=== PATIENT | female | born 1960 | race American Indian/Alaskan Native ===

== ENCOUNTER 2022-05-11 13:31 | Emergency (ER) | payer SELFPAY ==
--- NOTE | 2022-05-11 14:58 | XRay Report ---
CHEST 1 VIEW 05/11/2022 1:50 PM INDICATION / CLINICAL INFORMATION: Chest Pain. COMPARISON: None available. FINDINGS: SUPPORT DEVICES: None. HEART / MEDIASTINUM: No significant abnormality. LUNGS / PLEURA: No significant pulmonary or pleural abnormality. No pneumothorax. ADDITIONAL FINDINGS: No significant additional findings. IMPRESSION: 1. No acute findings. Signer Name: Vasu Thompson MD Signed: 05/11/2022 2:53 PM Workstation Name: [id number]
[2022-05-11 15:51] LABS: Basophils % (Auto) 0.7 % (0.0-1.8); Eosinophils # (Auto) 0.2 K/mm3 (0.0-0.4); Eosinophils % (Auto) 3.1 % (0.0-4.3); Hemoglobin 12.3 gm/dl (10.1-14.3); Lymphocytes # (Auto) 2.4 K/mm3 (1.2-5.4); Lymphocytes % (Auto) 35.4 % (13.4-35.0); Mean Corpuscular HGB Conc 33 % (30-34); Mean Corpuscular Volume 97 fl (79-97); Monocytes # (Auto) 0.7 K/mm3 (0.0-0.8); Monocytes % (Auto) 10.1 % (0.0-7.3); Platelet Count 228 K/mm3 (140-440); Red Blood Count 3.79 M/mm3 (3.65-5.03); Red Cell Distribution Width 13.6 % (13.2-15.2)
--- NOTE | 2022-05-11 15:57 | Emergency Department Report ---
ED General Adult HPI - General Chief complaint: Extremity Injury, Lower Stated complaint: SOB AND CHEST PAIN Time Seen by Provider: 05/11/22 15:25 Source: patient Mode of arrival: Ambulatory Limitations: No Limitations - History of Present Illness Initial comments: The patient presents to the emergency department with a chief complaint of shortness of breath and chest pain. Patient has a history of pulmonary emboli and has been on Xarelto for that for the last year. Initially the patient is very vague about the shortness of breath and chest pain but upon me asking more detailed questions it is revealed that she has had this chest pain or shortness of breath since she had the PE 1 year ago. She denies any abdominal pain or headache. -: Gradual, year(s) (1) Location: chest Severity scale (0 -10): 3 Quality: aching Consistency: constant Improves with: none Worsens with: none Associated Symptoms: denies other symptoms Treatments Prior to Arrival: none - Related Data Home Medications Medication Instructions Recorded Confirmed Last Taken Rosuvastatin (Nf) [Crestor] 10 mg PO QHS 07/26/13 07/26/13 07/25/13 Tizanidine HCl [Zanaflex] 4 mg PO PRN PRN 07/26/13 07/26/13 07/26/13 lisinopriL [Zestril] 20 mg PO QDAY 07/26/13 07/26/13 07/26/13 traMADoL [Ultram] 50 mg PO Q4HR PRN 07/26/13 07/26/13 07/26/13 Previous Rx's Medication Instructions Recorded Last Taken Type Hydrocodone Bit/Acetaminophen 1 tab PO Q6H PRN #16 tablet 07/26/13 Unknown Rx [Lortab 5-500 Tablet] diazePAM TAB [Valium] 5 mg PO Q8H PRN #21 tablet 07/26/13 Unknown Rx Glimepiride [Amaryl] 2 mg PO BID #60 tablet 10/12/13 Unknown Rx Insulin Glargine,Hum.rec.anlog 25 unit SQ QAM #30 dose 10/12/13 Unknown Rx [Lantus Solostar] Allergies Allergy/AdvReac Type Severity Reaction Status Date / Time gabapentin [From Neurontin] Allergy Dizziness Verified 05/11/22 13:48 rofecoxib [From Vioxx] Allergy Dizziness Verified 05/11/22 13:48 ED Review of Systems ROS: Stated complaint: SOB AND CHEST PAIN Other details as noted in HPI Comment: All other systems reviewed and negative Constitutional: denies: chills, fever Eyes: denies: eye pain, eye discharge, vision change ENT: denies: ear pain, throat pain Respiratory: shortness of breath. denies: cough, wheezing Cardiovascular: chest pain. denies: palpitations Endocrine: no symptoms reported Gastrointestinal: denies: abdominal pain, nausea, diarrhea Genitourinary: denies: urgency, dysuria, discharge Musculoskeletal: denies: back pain, joint swelling, arthralgia Skin: denies: rash, lesions Neurological: denies: headache, weakness, paresthesias Psychiatric: denies: anxiety, depression Hematological/Lymphatic: denies: easy bleeding, easy bruising ED Past Medical Hx - Past Medical History Previous Medical History?: Yes Hx Hypertension: Yes Hx Diabetes: Yes Additional medical history: History of back pain - Surgical History Additional Surgical History: Hysterectomy - Social History Smoking Status: Unknown if ever smoked - Medications Home Medications: Home Medications Medication Instructions Recorded Confirmed Last Taken Type Hydrocodone Bit/Acetaminophen 1 tab PO Q6H PRN #16 tablet 07/26/13 Unknown Rx [Lortab 5-500 Tablet] Rosuvastatin (Nf) [Crestor] 10 mg PO QHS 07/26/13 07/26/13 07/25/13 History Tizanidine HCl [Zanaflex] 4 mg PO PRN PRN 07/26/13 07/26/13 07/26/13 History diazePAM TAB [Valium] 5 mg PO Q8H PRN #21 tablet 07/26/13 Unknown Rx lisinopriL [Zestril] 20 mg PO QDAY 07/26/13 07/26/13 07/26/13 History traMADoL [Ultram] 50 mg PO Q4HR PRN 07/26/13 07/26/13 07/26/13 History Glimepiride [Amaryl] 2 mg PO BID #60 tablet 10/12/13 Unknown Rx Insulin Glargine,Hum.rec.anlog 25 unit SQ QAM #30 dose 10/12/13 Unknown Rx [Lantus Solostar] ED Physical Exam - General Limitations: No Limitations General appearance: alert, in no apparent distress - Head Head exam: Present: atraumatic, normocephalic - Eye Eye exam: Present: normal appearance, PERRL, EOMI - ENT ENT exam: Present: mucous membranes moist - Neck Neck exam: Present: normal inspection - Respiratory Respiratory exam: Present: normal lung sounds bilaterally. Absent: respiratory distress - Cardiovascular Cardiovascular Exam: Present: regular rate, normal rhythm. Absent: systolic murmur, diastolic murmur, rubs, gallop - GI/Abdominal GI/Abdominal exam: Present: soft, normal bowel sounds. Absent: distended, tenderness - Extremities Exam Extremities exam: Present: normal inspection - Back Exam Back exam: Present: normal inspection - Neurological Exam Neurological exam: Present: alert, oriented X3, CN II-XII intact. Absent: motor sensory deficit - Psychiatric Psychiatric exam: Present: normal affect, normal mood - Skin Skin exam: Present: warm, dry, intact, normal color. Absent: rash ED Course Vital Signs 05/11/22 05/11/22 05/11/22 13:45 14:05 15:00 Temperature 97.2 F L Pulse Rate 87 80 79 Respiratory 14 15 16 Rate Blood Pressure 125/65 Blood Pressure 102/63 [Left] O2 Sat by Pulse 98 Oximetry 05/11/22 05/11/22 17:00 17:08 Temperature Pulse Rate 69 Respiratory 14 Rate Blood Pressure 124/51 Blood Pressure [Left] O2 Sat by Pulse 100 Oximetry ED Medical Decision Making - Lab Data Result diagrams: 05/11/22 15:23 05/11/22 19:25 - EKG Data -: EKG Interpreted by Oh EKG shows normal: sinus rhythm Rate: normal - EKG Data Interpretation: other (Patient has nonspecific T wave abnormalities) - Radiology Data Radiology results: report reviewed - Medical Decision Making Patient's initial creatinine was 1.4 after receiving a liter of fluid and decreased to 1.2 Discussed results with patient Critical care attestation.: If time is entered above; I have spent that time in minutes in the direct care of this critically ill patient, excluding procedure time. ED Disposition Clinical Impression: Dyspnea, Nonspecific chest pain, Dehydration, SHANDA (acute kidney injury) Disposition: HOME / SELF CARE / HOMELESS Is pt being admited?: No Does the pt Need Aspirin: No Condition: Stable Instructions: Nonspecific Chest Pain, Adult, Dehydration, Adult, [id number], Shortness of Breath, Adult, [id number], Acute Kidney Injury, Adult Additional Instructions: Return if worse Referrals: YESSENIA THOMAS MD [Primary Care Provider] - 3-5 Days VARUN ALVARADO [Registered Nurse] - 3-5 Days Time of Disposition: 20:34
[2022-05-11 16:03] LABS: INR 0.92 (0.87-1.13)
[2022-05-11 16:53] LABS: Alanine Aminotransferase 33 units/L (7-56); Albumin 4.3 g/dL (3.9-5); BUN/Creatinine Ratio 19; Blood Urea Nitrogen 27 mg/dL (7-17); Calcium 10.1 mg/dL (8.4-10.2); Hemolysis Index 15
[2022-05-11 17:08] VITALS: BP 124/51
[2022-05-11] MEDS ORDERED: SODIUM CHLORIDE 0.9% 1000 ML 1,000 ML IV ONE (17:38)
[2022-05-11 19:59] LABS: Calcium 9.3 mg/dL (8.4-10.2)
--- NOTE | 2022-05-12 11:18 | Electrocardiograph Report ---
[facility] Test Date: 2022-05-11 Test Time: 15:18:58 Pat Name: HEMALATHA GALLO Department: Room: Gender: F [employer]ator: NURSE : 1960 Requested By: CHRISTIAN BLEDSOE Order Number: [id number] Reading MD: Ba Avery Measurements Intervals [place] Rate: 72 P: 71 MO: 168 QRS: 43 QRSD: 70 T: 95 QT: 392 QTc: 430 Interpretive Statements Sinus rhythm Probable left atrial enlargement Probable left ventricular hypertrophy Nonspecific T abnrm, anterolateral leads No previous ECG available for comparison Electronically Signed On 05-12-2022 11:17:28 EDT by Ba Avery
== END 2022-05-11 20:49 | disposition home or self-care (01) ==
LOC: ED 13:31
DX: R06.00 Dyspnea, unspecified (principal); R07.9 Chest pain, unspecified; E86.0 Dehydration; N17.9 Acute kidney failure, unspecified; I10 Essential (primary) hypertension; E11.9 Type 2 diabetes mellitus without complications; Z91.09 Other allergy status, other than to drugs and biological substances
CPT/HCPCS: 36415; 71045; 80048; 80053; 83690; 83880; 84484; 85025; 85610; 86140; 93005; 96360; 99284; J7030